=== PATIENT | female | born 2000 | race Caucasian/White ===

== ENCOUNTER → 2022-07-04 | Outpatient (CLI) | payer OTHER ==
[~2022-07-04] MED LIST: CODACEE120 PO; GABA300T24; HYDMOR2 PO; IBUP400 PO; Norco 5-325 Ta1 EACH PO
[2022-07-05 10:44] LABS: Candida species (DNA Probe) Negative (NEGATIVE); G. vaginalis (DNA Probe) Positive (NEGATIVE); T. vaginalis (DNA Probe) Negative (NEGATIVE)
== END | disposition home or self-care (01) ==
LOC: LAB 14:30 → LAB SHORT 14:30
PROVIDERS: Registered Nurse Community Health
DX: N89.8 Other specified noninflammatory disorders of vagina (principal)
CPT/HCPCS: 87480; 87510; 87660